=== PATIENT | male | born 1940 | race Caucasian/White ===

== ENCOUNTER → 2016-04-25 | Outpatient (CLI) | payer MEDICARE, BC ==
[~2016-04-25] MED LIST: ALLOPURINOL300 MG PO; ALPHA LIPOIC A200 MG PO; AMLODIPINE BESY10 MG PO; ASPIRIN PO; ASPIRIN81 M2 PO; ATENOLOL PO; AZULFIDINE PO; BACTRIM DS TABL1 TA2 PO; BENAZEPRIL PO; CIPRO PO; CLOBETASOL PROP TP; CRESTOR PO; CYANOCOBALAM1000 MCG PO; DAKIN'S3840 ML TOP; DESYREL50 MG PO; FLAGYL PO; FLOMAX0.4 M1 PO; FOLIC ACID PO; FOLIC ACID1 MG PO; HCTZ PO; IBUPROFEN800 MG PO; INDOMETHACIN75 MG PO; IRON325 ( 652 PO; K-DUR20 ME2 PO; KEFLEX500 MG PO; LASIX20 MG PO; LIALDA1.2 G; LIPITOR20 MG PO; LODINE400 M1 PO; LOMOTIL TABLET1 TAB; LOMOTIL TABLET1 TAB PO; LOPID600 MG PO; LOPRESSOR PO; LORTAB 10/500 T1 TAB PO; LOW DOSE ASPIRI81 M2 PO; MAGOX 400400 MG PO; METOPROLOL TART25 MG PO; MICRO-K PO; MULTI-VITAMIN1 TAB PO; NORVASC PO; OMEPRAZOLE20 M2 PO; PERCOCET 5-3251 TAB PO; PERCOCET5/325 PO; PREDNISONE PO; PREDNISONE10 MG; PRILOSEC PO; TETRACYCLINE PO; TOPROL XL 50 MG50 MG PO; TOPROL XL PO; TRIAMTERENE-HC1 EACH PO; VICODIN PO; VIT B12; VITAMIN B12-FO1 EACH PO; ZETIA PO; [UNRECOGNIZED DRUG - OTHER] PO
--- NOTE | ~2016-04-25 | CT55 ---
[facility] A Service of [facility] & [facility] RADIOLOGY TEXT RESULTS PATIENT: SERGEY GARCIA [facility] UNIT #: [id number] AGE: [address]: He Guerrero MD SEX: M ORDER DR: [id number] [facility] [address] [place], [place] [address] [id number] O MR#: [id number] #: [id number] NAME: SERGEY GARCIA. : 1940 SEX: M STUDY DATE/TIME: 04/25/2016 8:39 UNIT: [facility] ROOM: STUDY DESCRIPTION: CT Chest W Con Attending Physician: He Guerrero M.D. Referring Physician: He Guerrero M.D. Ordering Physician: He Guerrero M.D. Primary Care Physician: Niecy Viera M.D. MEDICAL IMAGING REPORT This report is preliminary unless electronic signature is present EXAM CT chest with contrast INDICATION Follow up pulmonary infiltrates. History of lung cancer. Restaging observation for metastatic disease. PROCEDURE Contrast-enhanced CT of the chest. 100 mL of Isovue-370. This CT exam was performed with one or more of the following radiation dose reduction techniques: automatic exposure control, adjustment of mA and/or kV according to patient size, and iterative reconstruction. COMPARISON 03/21/2016 FINDINGS A somewhat nodular opacity in the posterior left upper lobe measures approximately 2.8 x 1.7 cm and is not significantly changed from the prior. An area of opacity in the lateral left upper lobe measures approximately 2.0 x 2.6 cm and is more dense than on the prior. There is a linear opacity in the left lower lobe that is similar probably representing scarring or atelectasis. There is a 2 mm nodule in the right apex that is not significantly changed. There is a moderate left pleural effusion that is increased from the prior. No adenopathy in the chest. Previous sternotomy and CABG. No clearly acute finding in the included upper abdomen. A 3.6 cm cyst in the upper pole left kidney. Calcification and focal aneurysmal dilation STS. [facility] A Service of [facility] & [facility] RADIOLOGY TEXT RESULTS PATIENT: SERGEY GARCIA [facility] UNIT #: [id number] AGE: [address]: He Guerrero MD SEX: M ORDER DR: in the proximal celiac artery up to 1.4 cm is similar to the prior. Lucency in the T9 vertebral body measures 2.5 cm, and is stable. Of the nodular density in the posterior left upper lobe is more dense but is smaller than on a 08/01/[address] The opacity in the lateral left upper lobe is new compared with that study, as is the left pleural effusion. The lucent lesion in T9 is larger on the current study. It previously measured 1.7 cm. IMPRESSION 1. Opacity in the posterior left upper lobe abutting the mediastinum is similar to the most recent previous study and is slightly more dense and slightly smaller than on 08/01/2015. 2. Opacity along the lateral aspect left upper lobe with a broad pleural interface is more dense than on the most recent comparison study and new compared with 08/01/2015. 3. Moderate-sized left pleural effusion. 4. A 2.5 cm lucent lesion in the T9 vertebral body has increased in size and is suspicious for metastatic disease. Dictated by... Anibal Tse M.D. THIS IS AN ELECTRONICALLY VERIFIED REPORT Anibal Tse M.D. at 04/29/2016 7:21 AM BRITNI/david TD: 04/25/2016 14:08 JOB #: [id number] MEDICAL IMAGING REPORT COPY
[2016-04-25 08:55] LABS: POC - CREATININE 0.97 mg/dL (0.64-1.27); POC - GFR >60.0 mL/min (>60)
== END | disposition home or self-care (01) ==
LOC: CCAT 07:14
PROVIDERS: Internal Medicine Medical Oncology
DX: C34.92 Malignant neoplasm of unspecified part of left bronchus or lung (principal); J90 Pleural effusion, not elsewhere classified; M89.9 Disorder of bone, unspecified
CPT/HCPCS: 71260; 82565; Q9967

== ENCOUNTER 2016-05-02 01:07 | Emergency (ER) | payer MEDICARE, BC ==
--- NOTE | ~2016-05-02 | CR72 ---
[facility] A Service of [facility] RADIOLOGY TEXT RESULTS PATIENT: SERGEY GARCIA LOCATION: [facility] : 38 UNIT #: [id number] AGE: [address]: Lucia Castillo MD SEX: M ORDER DR: [id number] [facility] [address] [place], [place] [address] [id number] E MR#: [id number] Acc #: [id number] NAME: SERGEY GARCIA. : 1940 SEX: M STUDY DATE/TIME: 05/02/2016 1:17 UNIT: [facility] ROOM: STUDY DESCRIPTION: CR Chest Single View Portable Attending Physician: Lucia Castillo M.D. Ordering Physician: Lucia Castillo M.D. Primary Care Physician: Niecy Viera M.D. MEDICAL IMAGING REPORT This report is preliminary unless electronic signature is present EXAM AP portable chest 05/02/2016 HISTORY 75-year-old male in the ED complaining of worsening dyspnea this evening. History of bladder cancer with recent CT studies showing evidence of progression of pulmonary malignancy. TECHNIQUE AP portable chest x-ray. FINDINGS Focal masslike opacity in the left upper lobe at the level of the left hilum corresponds to at least 1 of the enlarging masslike lesions seen on [address] studies. There is also pleural thickening in the lateral left mid chest. Lungs are otherwise clear, with the exception of scattered fibrotic scarring. Cardiomegaly is stable. Postop changes of prior CABG surgery. Pulmonary vascularity is normal. IMPRESSION 1. Likely no significant change since the chest CT of 04/25/2016. Masslike opacity in the central left upper lobe. Adjacent pleural thickening. 2. CABG. Dictated by... Lonny Pina M.D. THIS IS AN ELECTRONICALLY VERIFIED REPORT Lonny Pina M.D. at 05/02/2016 9:54 PM RGW/df [facility] A Service of [facility] RADIOLOGY TEXT RESULTS PATIENT: SERGEY GARCIA LOCATION: [facility] : 38 UNIT #: [id number] AGE: [address]: Lucia Castillo MD SEX: M ORDER DR: TD: 05/02/2016 07:12 JOB #: [id number] MEDICAL IMAGING REPORT Page 1 of 1 COPY
--- NOTE | ~2016-05-02 | EKG ---
PATIENT: SERGEY GARCIA UNIT #: [id number] Ventricular Rate: 93 BPM Atrial Rate: 125 BPM QRS Duration: 92 ms Q-T Interval: 420 ms QTC Calculation(Bezet): 522 ms Calculated R [place]: 21 degrees Calculated T [place]: 70 degrees Diagnosis Line: Sinus tachycardia with 2nd degree A-V block Diagnosis Line: (Mobitz I) Diagnosis Line: Prolonged QT Diagnosis Line: Abnormal ECG Diagnosis Line: When compared with ECG of 02-MAY-2016 01:37, Diagnosis Line: (unconfirmed) Diagnosis Line: Previous ECG has undetermined rhythm, needs review Diagnosis Line: Confirmed by KATYA KELLEY MD ([id number]) on 05/03/2016 Diagnosis Line: 9:33:57 AM INTERPRETING MD: WARREN JOHNS
[2016-05-02 00:07] LABS: POC - CKMB 1.8 ng/mL (0.0-7.9); POC - TROPONIN <0.05 ng/mL (<=0.05)
[~2016-05-02 01:07] MED LIST changes: -LASIX20 MG PO; -MAGOX 400400 MG PO
[2016-05-02 02:30] LABS: BASOPHIL# 0.1 X10e3 (0-0.3); BASOPHIL% 1.4 % (0-2.5); EOSINOPHIL# 0.1 X10e3 (0-0.7); EOSINOPHIL% 1.8 % (0.0-7.0); HEMATOCRIT 37.9 % (38.0-50.0); HEMOGLOBIN 12.5 gm/dL (13.0-16.0); LYMPHOCYTE# 1.3 X10e3 (1.0-3.5); LYMPHOCYTE% 17.1 % (17.0-45.0); MEAN CELL VOLUME 92.1 FL (83-96); MEAN CORPUSCULAR HEMOGLOBIN 30.5 PG (28-34); MEAN CORPUSCULAR HGB CONC 33.1 g/dL (30-36); MEAN PLATELET VOLUME 8.8 FL (6.5-11.5); MONOCYTE# 0.9 X10e3 (0-1.0); MONOCYTE% 11.3 % (3.0-12.0); NEUTROPHIL# 5.2 X10e3 (1.5-7.1); NEUTROPHIL% 68.4 % (40-75); PLATELET COUNT 237 X10e3 (140-420); RED BLOOD COUNT 4.11 X10e (3.90-5.60); RED CELL DISTRIBUTION WIDTH 16.3 % (11.0-15.5); WHITE BLOOD COUNT 7.6 X10e3 (4.0-10.5)
[2016-05-02 02:33] LABS: DIFF IND NO
[2016-05-02 02:36] LABS: ALBUMIN SERUM 3.7 g/dL (3.5-5.0); ALKALINE PHOSPHATASE 85 U/L (32-92); ALT (SGPT) 18 U/L (10-40); AST (SGOT) 26 U/L (10-42); BILIRUBIN, DIRECT 0.1 mg/dL (0.0-0.2); BILIRUBIN,INDIRECT 0.8 mg/dL (0.0-0.9); BILIRUBIN,TOTAL 0.9 mg/dL (0.2-2.0); BLOOD UREA NITROGEN 15 mg/dL (9-23); BUN/CREATININE RATIO 16.66; CALCIUM SERUM 8.5 mg/dL (8.4-10.2); CARBON DIOXIDE 21 mmol/L (22-31); CHLORIDE 106 mmol/L (100-111); CREATININE SERUM 0.9 mg/dL (0.6-1.4); GLOM FILT RATE Estimated ABOVE60 mL/min (>60); GLUCOSE FASTING 127 mg/dL (70-110); POTASSIUM 3.6 mmol/L (3.5-5.1); PROTEIN TOTAL SERUM 7.5 g/dL (6.0-8.3); SODIUM 139 mmol/L (135-145)
== END 2016-05-02 03:45 | disposition home or self-care (01) ==
LOC: CED 01:07
PROVIDERS: Emergency Medicine
DX: R06.02 Shortness of breath (principal); E11.9 Type 2 diabetes mellitus without complications; E78.5 Hyperlipidemia, unspecified; Z85.51 Personal history of malignant neoplasm of bladder; Z79.82 Long term (current) use of aspirin; Z79.899 Other long term (current) drug therapy; Z88.2 Allergy status to sulfonamides; Z88.8 Allergy status to other drugs, medicaments and biological substances
CPT/HCPCS: 36415; 71010; 80048; 80076; 82553; 83880; 84484; 85025; 93005; 99283

== ENCOUNTER 2016-06-23 21:55 | Observation (INO) | payer MEDICARE, BC ==
--- NOTE | ~2016-06-23 | TH ---
Unit #: [id number] #: [id number] Patient: SERGEY GARCIA [id number] [address] [address] [id number] I MR#: [id number] NAME: SERGEY GARCIA : 1940 SEX: M STUDY DATE/TIME: 06/24/2016 UNIT: [facility] ROOM: [facility] STUDY DESCRIPTION: Imaging Study Attending Physician: Otoniel Weathers M.D. Primary Care Physician: Niecy Viera M.D. CARDIOLOGY REPORT EXAM Perfusion imaging SUMMARY Patient underwent Lexiscan protocol. Patient received a resting dose of 11.33 mCi and a stress dose of 34.3 mCi. On gated imaging patient appears to have normal wall motion with a preserved ejection fraction. The patient's LVEF is 59%. On perfusion imaging, comparing rest and stress images there appear to be no reversible perfusion defects. CONCLUSION 1. Preserved ejection fraction. 2. No obvious ischemia. 3. ECG portion dictated separately. Dictated by... Sarah Morse M.D. DE/cf TD: 06/24/2016 22:36 JOB #: [id number] CARDIOLOGY REPORT Page 1 of 1 X SARAH MORSE MD CARDIOLOGY REPORT
--- NOTE | ~2016-06-23 | EKG ---
PATIENT: SERGEY GARCIA UNIT #: [id number] Ventricular Rate: 88 BPM Atrial Rate: 88 BPM P-R Interval: 164 ms QRS Duration: 96 ms Q-T Interval: 374 ms QTC Calculation(Bezet): 452 ms P [place]: 54 degrees Calculated R [place]: 24 degrees Calculated T [place]: 54 degrees Diagnosis Line: Normal sinus rhythm Diagnosis Line: Nonspecific ST and T wave abnormality Diagnosis Line: Abnormal ECG Diagnosis Line: When compared with ECG of 02-MAY-2016 01:39, Diagnosis Line: Sinus rhythm is no longer with 2nd degree A-V Diagnosis Line: block (Mobitz I) Diagnosis Line: QT has shortened Diagnosis Line: Confirmed by MAGALIE WILLIAMSON MD ([id number]) on Diagnosis Line: 06/24/2016 8:37:42 AM INTERPRETING MD: TERI JOHNS
--- NOTE | ~2016-06-23 | HP ---
Unit #: [id number] #: [id number] Patient: SERGEY GARCIA [id number] [address] [place], [place] [address] [id number] I MR#: [id number] NAME: SERGEY GARCIA. ROOM: 570 Age: 75 Sex: M Admission Date: 06/23/2016 : 1940 Attending Physician: Otoniel Weathers M.D. Primary Care Physician: Niecy Viera M.D. [facility], Dr. Sarah Del Castillo. CHIEF COMPLAINT Chest pain. HISTORY OF PRESENT ILLNESS Mr. Garcia is a 75-year-old white male with history of arteriosclerotic heart disease, coronary artery bypass grafting, hypertension, diabetes, as well as, dyslipidemia who presents with complaints of mid sternal chest discomfort. He states it began about 9 p.m. last night. It lasted for two hours. It was nonradiating. No nausea. No vomiting. It was associated with shortness of air. He came to the emergency room. It resolved spontaneously but he said they did give him nitroglycerin and aspirin in the ER, but by the time he got the aspirin and nitroglycerin, his chest pain had already dissipated. He did not take any medications at home prior to arrival. He is currently chest pain free. The patient received 325 mg of aspirin and three nitroglycerin sublingual in the emergency room. PAST MEDICAL HISTORY 1. Hypertension. 2. Diabetes. 3. Dyslipidemia. 4. Lung cancer with chemo and radiation, last radiation treatment was December 2015, last chemo treatment was January 2016. 5. COPD. 6. Atherosclerotic heart disease. 7. Bladder cancer with intravesical BCG in 2013. 8. History of sepsis and cellulitis, August 2013. 9. History of pneumonia. PAST SURGICAL HISTORY 1. Coronary artery bypass grafting approximately 21 years ago. 2. Cholecystectomy. 3. Partial colectomy. 4. Right carpal tunnel release, April 2009. 5. Bilateral cataract removal. SOCIAL HISTORY Quit tobacco in 2001. Alcohol use, approximately two drinks once to twice weekly. FAMILY HISTORY Unit #: [id number] #: [id number] Patient: SERGEY GARCIA Father at the age of 95 and reports was healthy. Mother had hypertension. HOME MEDICATIONS 1. Norvasc 10 mg daily. 2. Toprol 50 mg twice daily. 3. Lipitor 20 mg daily. 4. Potassium 20 mEq twice daily. 5. Prilosec 75 mg daily. 6. Aspirin 81 mg daily. 7. Flomax 0.4 mg daily. ALLERGIES Bactrim. REVIEW OF SYSTEMS No fevers. No chills. No dysphagia. Positive hard of hearing, wears bilateral hearing aids. No cough, congestion but has had chronic dyspnea on exertion since he has had chemo and radiation but denies orthopnea. No shortness of air at rest. No bright bleeding per rectum. No melena. No hematuria. No constipation. No diarrhea. History of colostomy with reversal. Chronic lower extremity edema, worse on the left. No seizures. No syncope. No near syncope. No skin rash. PHYSICAL EXAMINATION GENERAL: Well-developed, well-nourished, white male in no acute distress. VITAL SIGNS: Temperature 97.9, blood pressure 147/76, respirations 16, pulse 95, normal sinus rhythm. Height 5 feet 7 inches, weight 88.45 kg. BMI 30. HEENT: Normocephalic and atraumatic. No xanthelasma. Pupils equal, round, and reactive to light. Extraocular movements intact. Bilateral hearing aids intact. NECK: Supple. Jugular is full. CVP is approximately 8-9. LUNGS: Clear to auscultation anteriorly/posteriorly bilaterally. HEART: S1, S2. No S3, S4. No murmurs, rubs, gallops. Normal sinus rhythm. ABDOMEN: Bowel sounds are positive. Abdomen is morbidly obese with hernia present. EXTREMITIES: Bilateral lower extremity pitting edema, left greater than right. Two plus pulses bilaterally. SKIN: No rash. No ulcers. No wounds. SPINE: No scoliosis. NEUROLOGIC: Speech clear, appropriate. Good historian. No facial drooping. Alva steady. No extremity weakness. DIAGNOSTIC STUDIES LABORATORY: Chemistries: Sodium 139, potassium 3.3, chloride 105, CO2 of 23, BUN 19, creatinine 0.9, glucose 103, calcium 9.2. Magnesium 1.3. Total protein 7.3, albumin 4, total bilirubin 0.8, AST 20, ALT 20, alkaline phosphatase 87. Troponin less than 0.03. BNP 37. PT 12.4, INR 1.2, PTT 36.2. Point of care troponin less than 0.05 and less than 0.05. Hemoglobin 13.1, hematocrit 39.6, white blood cell count 7.2, platelet count 221,000. IMAGING: Chest x-ray shows no significant change since May 02, 2016. Cardiomegaly is stable. Emphysema with chronic scarring at the right base. Fibrotic changes in the left hilum extending out to the pleura are stable. Opacities at the left base are stable. No pneumothorax. Unit #: [id number] #: [id number] Patient: SERGEY GARCIA ASSESSMENT 1. Chest pain: Patient has had three negative troponins. A 12-lead EKG without acute ST elevation. No acute ST depression. Nonspecific T-wave abnormality. Ventricular rate was 88. 2. History of hypertension. 3. Diabetes. 4. Dyslipidemia. 5. Arteriosclerotic heart disease with history of coronary artery bypass grafting. 6. History of lung cancer with chemo and radiation with chronic dyspnea on exertion. 7. History of chronic obstructive pulmonary disease, quit tobacco in 2001. 8. History of bladder cancer. 9. Hypomagnesemia. 10. Hypokalemia. PLAN 1. We will replete his magnesium with 3 g IV. 2. We will replete his potassium. 3. We will resume his home medications. 4. Need to followup on patient's stress test which has already been completed at time of this dictation. He underwent Lexiscan stress test. 5. We will check a 2D echocardiogram. 6. Lasix 40 mg IV daily. 7. We will also add Mag-Oxide 400 mg p.o. daily. 8. CBC, BMP (basic metabolic profile), fasting lipid panel, and TSH in a.m. 9. We will plan home in the a.m. if patient's physical exam and laboratory studies allow. 10. MD to follow with any further recommendations. Dictated by Jr ArnoldPVickieRVickieN. for Sarah Del Castillo M.D. JOSSIE/kinza TD: 06/24/2016 12:12 JOB #: [id number] HISTORY AND PHYSICAL Page 1 of 1 X X HISTORY AND PHYSICAL
--- NOTE | ~2016-06-23 | CR72 ---
[facility] A Service of [facility] & [facility] RADIOLOGY TEXT RESULTS PATIENT: SERGEY GARCIA LOCATION: [facility] 570- : 38 UNIT #: [id number] AGE: [address]: Otoniel Weathers MD SEX: M ORDER DR: [id number] [facility] [address] [facility] [address] [place], [place] [address] [id number] MR#: [id number] Acc #: [id number] NAME: SERGEY GARCIA : 1940 SEX: M STUDY DATE/TIME: 06/23/2016 22:40 UNIT: [facility] ROOM: [id number] STUDY DESCRIPTION: CR Chest Single View Portable Attending Physician: Otoniel Weathers M.D. Ordering Physician: Óscar Koenig M.D. Primary Care Physician: Niecy Viera M.D. MEDICAL IMAGING REPORT This report is preliminary unless electronic signature is present EXAM Portable chest, 06/23 22:40 INDICATION Chest pain and shortness of air today. History of stage 4 lung cancer. FINDINGS AP portable chest is compared 05/02/2016. Cardiomegaly is stable status post CABG. There is emphysema with chronic scarring at the right base. Fibrotic changes in the left hilum extending out to the pleura are stable. Opacities at the left base are stable as well. Findings presumably related to the patient's history of lung cancer. No pneumothorax. IMPRESSION No significant change since 05/02/2016. Dictated by... Alonso Morris Jr., M.D. THIS IS AN ELECTRONICALLY VERIFIED REPORT Alonso Morris Jr., M.D. at 06/24/2016 5:18 PM AL/logan TD: 06/24/2016 09:48 JOB #: [id number] MEDICAL IMAGING REPORT Page 1 of 1 COPY
--- NOTE | ~2016-06-23 | DS ---
Unit #: [id number] #: [id number] Patient: SERGEY GARCIA [id number] [address] [address] [id number] I MR#: [id number] NAME: SERGEY GARCIA. ROOM: 570 Age: 75 Sex: M Admission Date: 06/23/2016 : 1940 Discharge Date: 06/25/2016 Attending Physician: Otoniel Weathers M.D. Primary Care Physician: Niecy Viera M.D. DISCHARGE SUMMARY [facility] Cardiology. ADMISSION DIAGNOSES 1. Chest discomfort. 2. History of hypertension. 3. Diabetes. 4. Dyslipidemia. 5. Lung cancer with chemo and radiation. 6. Chronic obstructive pulmonary disease. 7. Arteriosclerotic heart disease. 8. Bladder cancer. 9. History of sepsis and cellulitis. 10. History of pneumonia. 11. Dyslipidemia. 12. Hypomagnesemia. DISCHARGE DIAGNOSES 1. Chest discomfort. 2. History of hypertension. 3. Diabetes. 4. Dyslipidemia. 5. Lung cancer with chemo and radiation. 6. Chronic obstructive pulmonary disease. 7. Arteriosclerotic heart disease. 8. Bladder cancer. 9. History of sepsis and cellulitis. 10. History of pneumonia. 11. Dyslipidemia. 12. Hypomagnesemia. Mr. Garcia was admitted with chest discomfort. Myocardial infarction was ruled out with serial negative troponins. He underwent Lexiscan Cardiolite treadmill stress testing which was negative for ischemia. A 2-D echocardiogram showed a left ventricle that was normal in size, normal left ventricular wall thickness. EF was 50 to 55%. No gross wall motion abnormalities. Impaired relaxation with grade one diastolic dysfunction, mild tricuspid regurgitation. Right ventricular systolic pressure was 45 to 50 mmHg. No aortic stenosis. Mild tricuspid regurgitation. Normal left atrium. No pericardial effusion. He was admitted with hypokalemia and his potassium was repleted. He was also admitted with hypomagnesemia and his magnesium was repleted. His cholesterol profile was obtained which showed a cholesterol of 203, triglycerides of 193, LDL of 122, HDL of 42. We will adjust his cholesterol medication and we will add low dose Unit #: [id number] #: [id number] Patient: SERGEY GARCIA Lasix to his home medication regimen as well as magnesium oxide 400 mg daily. He has a follow up appointment with Dr. Benavides in July as well as with Dr. Guerrero in August and followup CT in August. He has been recommended to keep his scheduled followups. DISCHARGE MEDICATIONS 1. Potassium 20 mEq p.o. twice daily. 2. Flomax 0.4 mg daily. 3. Norvasc 10 mg daily. 4. Lopressor tartrate 50 mg twice daily. 5. We will increase his Lipitor to 40 mg daily. 6. Aspirin 81 mg daily. 7. Prilosec 75 mg daily. 8. Lasix 20 mg daily. 9. Magnesium oxide 400 mg daily. Dictated by... Cira Levy, Raoul.P.R.N. for Toni Hallman M.D. JOSSIE/kurtis TD: 06/25/2016 11:18 JOB #: [id number] DISCHARGE SUMMARY Page 1 of 1 X X DISCHARGE SUMMARY
--- NOTE | ~2016-06-23 | ST ---
Unit #: [id number] #: [id number] Patient: SERGEY GARCIA [id number] [address] [address] [id number] I MR#: [id number] NAME: SERGEY GARCIA. : 1940 SEX: M STUDY DATE/TIME: 06/24/2016 UNIT: [facility] ROOM: [facility] STUDY DESCRIPTION: Stress Test Attending Physician: Otoniel Weathers M.D. Primary Care Physician: Niecy Viera M.D. CARDIOLOGY REPORT EXAM ECG stress test INDICATION Chest discomfort. SUMMARY Patient underwent Lexiscan protocol. Patient's resting ECG showed normal sinus rhythm with nonspecific ST-segment changes. The patient's stress ECG shows normal sinus rhythm with continued nonspecific ST-segment changes not meeting ischemic threshold. There is isolated PAC seen in recovery and during portion of Lexiscan infusion. There is no abnormal arrhythmia seen. There are no pauses noted. The patient's resting heart rate was 84 beats per minute which increased to 122 beats per minute, representing 85% of the maximal age-predicted heart rate. The patient's resting blood pressure was 129/82 mmHg which increased to 141/71 mmHg. CONCLUSION 1. Negative ECG portion of the Lexiscan study for ischemia. 2. Perfusion imaging to be dictated separately. Dictated by... Sarah Morse M.D. LA/parisa TD: 06/24/2016 22:23 JOB #: [id number] CARDIOLOGY REPORT Page 1 of 1 X SARAH MORSE MD CARDIOLOGY REPORT
[2016-06-23 22:46] LABS: BASOPHIL% 0.2 % (0-2.5); EOSINOPHIL# 0.2 X10e3 (0-0.7); HEMATOCRIT 39.6 % (38.0-50.0); HEMOGLOBIN 13.1 gm/dL (13.0-16.0); LYMPHOCYTE# 1.4 X10e3 (1.0-3.5); LYMPHOCYTE% 19.5 % (17.0-45.0); MEAN CORPUSCULAR HEMOGLOBIN 30.1 PG (28-34); MEAN CORPUSCULAR HGB CONC 33.1 g/dL (30-36); MEAN PLATELET VOLUME 8.2 FL (6.5-11.5); MONOCYTE# 0.6 X10e3 (0-1.0); MONOCYTE% 8.9 % (3.0-12.0); NEUTROPHIL# 4.9 X10e3 (1.5-7.1); NEUTROPHIL% 68.4 % (40-75); PLATELET COUNT 221 X10e3 (140-420); RED BLOOD COUNT 4.35 X10e (3.90-5.60); RED CELL DISTRIBUTION WIDTH 14.3 % (11.0-15.5); WHITE BLOOD COUNT 7.2 X10e3 (4.0-10.5)
[2016-06-23 22:47] LABS: DIFF IND NO
[2016-06-23 23:03] LABS: INR 1.2; PARTIAL THROMBOPLASTIN TIME 36.2 SECONDS (23.5-31.3); PROTHROMBIN TIME (PATIENT) 12.4 SECONDS (9.6-11.5)
[2016-06-23 23:11] LABS: BILIRUBIN, DIRECT 0.1 mg/dL (0.0-0.2); BILIRUBIN,INDIRECT 0.7 mg/dL (0.0-0.9); BILIRUBIN,TOTAL 0.8 mg/dL (0.2-2.0); BUN/CREATININE RATIO 21.11; CALCIUM SERUM 9.2 mg/dL (8.4-10.2); CREATININE SERUM 0.9 mg/dL (0.6-1.4); GLOM FILT RATE Estimated 82.1 mL/min (>60); MAGNESIUM 1.3 mg/dL (1.6-3.0); POTASSIUM 3.3 mmol/L (3.5-5.1); PROTEIN TOTAL SERUM 7.3 g/dL (6.0-8.3)
[2016-06-23 23:27] LABS: POC - CKMB 1.1 ng/mL (0.0-7.9); POC - TROPONIN <0.05 ng/mL (<=0.05)
[2016-06-24 00:34] LABS: POC - CKMB <1.0 ng/mL (0.0-7.9); POC - TROPONIN <0.05 ng/mL (<=0.05)
[2016-06-24] MEDS ORDERED: LOPRESSOR PO (12:34)
[2016-06-25 05:35] LABS: HEMATOCRIT 39.5 % (38.0-50.0); HEMOGLOBIN 13.1 gm/dL (13.0-16.0); MEAN CELL VOLUME 90.4 FL (83-96); MEAN CORPUSCULAR HGB CONC 33.2 g/dL (30-36); MEAN PLATELET VOLUME 8.5 FL (6.5-11.5); RED BLOOD COUNT 4.37 X10e (3.90-5.60); RED CELL DISTRIBUTION WIDTH 14.7 % (11.0-15.5); WHITE BLOOD COUNT 6.9 X10e3 (4.0-10.5)
[2016-06-25 06:32] LABS: BUN/CREATININE RATIO 23.75; CALCIUM SERUM 9.1 mg/dL (8.4-10.2); CREATININE SERUM 0.8 mg/dL (0.6-1.4); GLOM FILT RATE Estimated 86.2 mL/min (>60); POTASSIUM 3.3 mmol/L (3.5-5.1)
[2016-06-25] MEDS ORDERED: MAGOX 400400 MG PO (10:33)
[2016-06-25] MEDS ORDERED: LASIX20 MG PO (10:33)
== END 2016-06-25 12:05 | disposition home or self-care (01) ==
LOC: CED 21:55 → C5C 23:50 → CEDOF 23:50 → CED 06-24 00:03 → CEDOF 06-24 00:03 → C5C 06-24 10:47 → CEDOF 06-24 10:47 → C5C 06-25 12:05
PROVIDERS: Emergency Medicine
DX: R07.9 Chest pain, unspecified (principal); I36.1 Nonrheumatic tricuspid (valve) insufficiency; I51.9 Heart disease, unspecified; I10 Essential (primary) hypertension; E11.9 Type 2 diabetes mellitus without complications; E78.5 Hyperlipidemia, unspecified; J44.9 Chronic obstructive pulmonary disease, unspecified; E83.42 Hypomagnesemia; I25.10 Atherosclerotic heart disease of native coronary artery without angina pectoris; Z95.1 Presence of aortocoronary bypass graft; Z79.82 Long term (current) use of aspirin; Z79.899 Other long term (current) drug therapy; Z87.891 Personal history of nicotine dependence; Z85.118 Personal history of other malignant neoplasm of bronchus and lung; Z87.01 Personal history of pneumonia (recurrent); Z85.51 Personal history of malignant neoplasm of bladder; Z82.49 Family history of ischemic heart disease and other diseases of the circulatory system; Z72.89 Other problems related to lifestyle; Z90.49 Acquired absence of other specified parts of digestive tract; Z88.1 Allergy status to other antibiotic agents
CPT/HCPCS: 36415; 71010; 78452; 80048; 80061; 80076; 82553; 82947; 83735; 83880; 84443; 84484; 85025; 85027; 85610; 85730; 93005; 93017; 93306; 96374; 96375; 96376; 99291; A9500; G0378; J1940; J2785; J3475

== ENCOUNTER → 2016-08-12 | Outpatient (CLI) | payer MEDICARE, BC ==
[~2016-08-12] MED LIST changes: +LASIX20 MG PO; +MAGOX 400400 MG PO
--- NOTE | ~2016-08-12 | CT55 ---
[facility] A Service of [facility] RADIOLOGY TEXT RESULTS PATIENT: SERGEY GARCIA [facility] UNIT #: [id number] AGE: [address]: He Guerrero MD SEX: M ORDER DR: [id number] [facility] [address] [place], [place] [address] [id number] O MR#: [id number] Acc #: [id number] NAME: SERGEY GARCIA. : 1940 SEX: M STUDY DATE/TIME: 08/12/2016 9:18 UNIT: [facility] ROOM: STUDY DESCRIPTION: CT Chest W Con Attending Physician: He Guerrero M.D. Referring Physician: He Guerrero M.D. Ordering Physician: He Guerrero M.D. Primary Care Physician: Niecy Viera M.D. MEDICAL IMAGING REPORT This report is preliminary unless electronic signature is present EXAM Chest CT, 08/12 INDICATION Lung cancer. Observation for malignant neoplasm. No current complaints. History of bladder cancer. TECHNIQUE Axial images were obtained through the chest following IV contrast administration. Multiplanar reformats were obtained. This CT exam was performed with one or more of the following radiation dose reduction techniques: automatic exposure control, adjustment of mA and/or kV according to patient size, and iterative reconstruction. COMPARISON PET/CT from 05/15/2016 FINDINGS Patient is status post CABG. There is no pericardial effusion. There is a small chronic-appearing left pleural effusion which is likely not significantly changed. No right-side pleural fluid is seen. There is a stable small right paratracheal lymph node. No adenopathy by size criteria is identified. There is emphysema. There is an area of dense consolidation in the left upper lobe abutting the mediastinum measuring 2.9 x 2.1 cm. Allowing for differences in scan technique and slice selection, this is not appreciably changed. More peripheral opacity in the left upper lobe is still present but overall is slightly less dense than on the prior study. This may reflect evolving infection/inflammation. Some of this could be due to radiation fibrosis. There is some compressive atelectasis in the left lower lobe due to the pleural fluid. Opacity in the medial right lower lobe abutting the mediastinum is not significantly changed. No new pulmonary parenchymal STS. [facility] A Service of [facility] RADIOLOGY TEXT RESULTS PATIENT: SERGEY GARCIA LOCATION: [facility] : 38 UNIT #: [id number] AGE: [address]: He Guerrero MD SEX: M ORDER DR: abnormalities are identified. Area of lucency in the T9 vertebral body is again seen and is stable to slightly less conspicuous. No definite new osseous lesions. Upper abdomen shows a lax ventral abdominal wall as seen before. Gallbladder surgically absent. There is atherosclerotic disease. Left renal cysts are partially seen. IMPRESSION 1. Left upper lobe parenchymal density is slightly improved laterally relative to the recent PET/CT. The more central portion abutting the mediastinum is stable. This remains nonspecific and at least some of this could be due to radiation fibrosis. Attention on followup is recommended. 2. Parenchymal density in the medial right lower lobe is stable abutting the pleural surface. This is also nonspecific. 3. Stable chronic left pleural effusion. 4. Slight decreased conspicuity of a lytic lesion in T9. No new bone lesions are identified. Dictated by... Alonso Morris Jr., M.D. THIS IS AN ELECTRONICALLY VERIFIED REPORT Alonso Morris Jr., M.D. at 08/14/2016 5:03 PM AL/logan TD: 08/14/2016 12:20 JOB #: [id number] MEDICAL IMAGING REPORT Page 1 of 1 COPY
[2016-08-12 09:20] LABS: POC - CREATININE 0.88 mg/dL (0.64-1.27); POC - GFR >60.0 mL/min (>60)
== END | disposition home or self-care (01) ==
LOC: CCAT 08:12
PROVIDERS: Internal Medicine Medical Oncology
DX: C34.90 Malignant neoplasm of unspecified part of unspecified bronchus or lung (principal); C34.92 Malignant neoplasm of unspecified part of left bronchus or lung; J98.4 Other disorders of lung; J90 Pleural effusion, not elsewhere classified; M89.9 Disorder of bone, unspecified
CPT/HCPCS: 71260; 82565; Q9967